=== PATIENT | female | born 1970 | race Caucasian/White ===

== ENCOUNTER → 2021-11-02 | Outpatient (CLI) | payer OTHER | LOC: KOH-I 15:18 | DX: M25.572 Pain in left ankle and joints of left foot (principal); M19.072 Primary osteoarthritis, left ankle and foot | CPT/HCPCS: 73610 ==

== ENCOUNTER → 2021-11-16 | Outpatient (CLI) | payer OTHER | LOC: KOH-I 12:57 | DX: S93.422A Sprain of deltoid ligament of left ankle, initial encounter (principal); M21.42 Flat foot [pes planus] (acquired), left foot; S93.02XA Subluxation of left ankle joint, initial encounter; M76.822 Posterior tibial tendinitis, left leg | CPT/HCPCS: 73721; 93926 ==